=== PATIENT | male | born 1970 | race Caucasian/White ===

== ENCOUNTER 2022-11-07 05:46 | Emergency (ER) | payer OTHER, BC, SELFPAY ==
[2022-11-07 06:00] VITALS: BP 146/88; PULSE 89; RESP 20; TEMP 36.2; O2SAT 96; BMI 55.1
--- NOTE | 2022-11-07 06:12 | CRLHL7_ITS ---
For Patients: As a result of the Century Cures Act, medical imaging exams and procedure reports are released immediately into your electronic medical record. You may view this report before your referring provider. If you have questions, please contact your health care provider. Indication: Injury Technique: A total of three views of the left shoulder were acquired. Comparison: None Findings: Bones: Alignment is normal. No fractures or bone lesions. Joint spaces: Mild arthritic change at the glenohumeral and the acromioclavicular joints. Soft tissues: Unremarkable. Impression: No acute fracture, dislocation or destructive process. Mild arthritic changes at the glenohumeral and acromioclavicular joints Dictated by Elroy Montgomery MD @ 11/07/2022 7:16:22 AM (Electronically Signed)
--- NOTE | 2022-11-07 06:13 | ED.UPPEXIN ---
HPI - Extremity Injury (Upper) General Chief Complaint: Shoulder Injury/Pain Stated Complaint: Left should injured at work Time Seen by Provider: 11/07/22 06:05 History of Present Illness HPI narrative: Patient is a 52-year-old gentleman who was at work tonight walking through a doorway when he slipped on some wet [place] and struck his left shoulder and forearm the door frame. He did not hit his head he did not lose consciousness. Since the injury which occurred within the last hour patient has had pain in the left shoulder well as inability to lift his left arm. He really has no overt neck pain no chest pain no nausea no vomiting no fevers no chills. Patient has no previous injuries of the shoulder. Patient has no numbness no tingling no weakness no difficulty moving the elbow or wrist. He has not had any bruising or swelling but has the inability to extend left the left arm. Pain is moderate and dull. Related Data Home Medications Medication Instructions Recorded Confirmed furosemide 40 mg tablet 40 mg PO DAILY 11/07/22 11/07/22 lisinopril 20 mg tablet 20 mg PO DAILY 11/07/22 11/07/22 metformin 500 mg tablet 1,000 mg PO BID 11/07/22 11/07/22 Allergies Allergy/AdvReac Type Severity Reaction Status Date / Time No Known Drug Allergies Allergy Verified 11/07/22 06:02 Review of Systems Status of ROS: Reports: 10 or more systems reviewed and unremarkable except as noted in History and below [facility] Medical History Diabetes mellitus ?E11.9 - Type 2 diabetes mellitus without complications (ICD-10) Hypertension ?I10 - Essential (primary) hypertension (ICD-10) Exam Narrative: Exam Narrative: EXAM GENERAL: Patient appears comfortable and well. EYES: No scleral icterus. LYMPH: No supraclavicular or cervical lymphadenopathy. SKIN: Visible skin seen during exam normal or with benign process only. EXT: No dependent lower extremity pedal edema. HEART: Regular rate and rhythm with no murmurs, rubs, or gallops. LUNGS: Clear to auscultation bilaterally with no crackles or wheezes. ABD: Soft, non tender, non distended. PSYCH: Good eye contact, speech is not pressured. Neurologic cranial nerves 2-12 grossly intact no focal defects. Examination left shoulder shows decreased range of motion with no significant swelling noted. No bruising but he does have pain to palpation of the shoulder capsule. Const: Vital Signs, click to edit/add: Vital Signs - 24 hr 11/07/22 06:00 Temperature 97.1 F L Pulse Rate [Left P ulse Oximeter] 89 Respiratory Rate 20 Blood Pressure [Le ft Upper Arm] 146/88 H Pulse Oximetry 96 Course Course Hospital Course: X-ray series upon my review of the left shoulder shows no acute fractures or dislocations. Vital Signs Vital signs: Initial Vital Signs Temperature 97.1 F L 11/07/22 06:00 Temperature Source Temporal Artery Scan 11/07/22 06:00 Pulse Rate 89 11/07/22 06:00 Respiratory Rate 20 11/07/22 06:00 Blood Pressure 146/88 H 11/07/22 06:00 Blood Pressure Mean 107 H 11/07/22 06:00 Blood Pressure Position Sitting 11/07/22 06:00 Pulse Oximetry 96 11/07/22 06:00 Vital Signs Temperature 97.1 F L 11/07/22 06:00 Pulse Rate 89 11/07/22 06:00 Respiratory Rate 20 11/07/22 06:00 Blood Pressure 146/88 H 11/07/22 06:00 Pulse Oximetry 96 11/07/22 06:00 Temperature 97.1 F L 11/07/22 06:00 Pulse Rate 89 11/07/22 06:00 Respiratory Rate 20 11/07/22 06:00 Blood Pressure 146/88 H 11/07/22 06:00 Pulse Oximetry 96 11/07/22 06:00 MDM - Extremity Injury (Upper) MDM Narrative Medical decision making narrative: Patient is a 52-year-old gentleman who had a blunt injury to the left shoulder now has inability to extend the left arm. Also has pain in the left shoulder. X-ray series of the left shoulder upon my review is negative for acute fractures or dislocations. He has no other injuries and no neurologic symptoms. This point it appears his symptoms are most compatible with ligamentous or tendon injury. I did place him in a sling and recommended Tylenol Motrin ice and follow up with possible MRI this week. Differential Diagnosis Differential diagnosis: Likely sprain and strain of wrist, dislocation of shoulder, fracture of humerus and fracture of clavicle Discharge Plan Discharge Clinical Impression: Left shoulder strain Condition: Stable Instructions: Rotator Cuff Injury (ED) Additional Instructions: Sling for comfort Tylenol Motrin Rest Ice Follow-up with your doctor this week to discuss MRI of the left shoulder. Activity Level: Activity as Tolerated Discharge Diet: Regular Prescriptions: No Action furosemide 40 mg tablet 40 mg PO DAILY metformin 500 mg tablet 1,000 mg PO BID lisinopril 20 mg tablet 20 mg PO DAILY Follow Up/Referrals: Provider,Not a Local [Primary Care Provider] - Stand Alone Forms: [employer] [place] Info Instructions
[2022-11-07 06:52] VITALS: BP 146/88; PULSE 89; RESP 20; TEMP 36.2
== END 2022-11-07 06:52 | disposition home or self-care (01) ==
LOC: ED 06:27
PROVIDERS: Emergency Provider Internal Medicine
DX: S46.912A Strain of unspecified muscle, fascia and tendon at shoulder and upper arm level, left arm, initial encounter (principal); W01.10XA Fall on same level from slipping, tripping and stumbling with subsequent striking against unspecified object, initial encounter
CPT/HCPCS: 73030; 99283